=== PATIENT | female | born 1975 | race Caucasian/White ===

== ENCOUNTER → 2017-03-09 | Outpatient (CLI) | payer SELFPAY | END | disposition home or self-care (01) | LOC: RAD 10:28 | PROVIDERS: ATTEND Internal Medicine Hematology & Oncology | DX: Z45.2 Encounter for adjustment and management of vascular access device (principal); Z51.11 Encounter for antineoplastic chemotherapy; C49.9 Malignant neoplasm of connective and soft tissue, unspecified | CPT/HCPCS: 36569; 76937; 77001; C1751 ==

== ENCOUNTER → 2017-06-17 | Outpatient (CLI) | payer SELFPAY | LOC: CYBERKNIFE 06:43 | PROVIDERS: ATTEND Radiology Radiation Oncology | DX: C71.9 Malignant neoplasm of brain, unspecified (principal) | CPT/HCPCS: 99204; G0463 ==

== ENCOUNTER → 2017-06-17 | Outpatient (CLI) | payer SELFPAY | END | disposition home or self-care (01) | LOC: RAD 12:01 | PROVIDERS: ATTEND Internal Medicine Hematology & Oncology | DX: C34.90 Malignant neoplasm of unspecified part of unspecified bronchus or lung (principal); C41.9 Malignant neoplasm of bone and articular cartilage, unspecified; N63 Unspecified lump in breast; K80.20 Calculus of gallbladder without cholecystitis without obstruction; R59.0 Localized enlarged lymph nodes | CPT/HCPCS: 71550 ==